=== PATIENT | male | born 1940 | race Hispanic/Latino ===

== ENCOUNTER 2018-09-16 06:13 | Day surgery (SDC) | payer MEDICARE ==
[2018-09-13 14:45] VITALS: BP 139/65
[2018-09-13 15:02] LABS: BASOPHILS % (AUTO) 0.7 % (0.0-5.0); EOSINOPHILS % (AUTO) 7.3 % (0.0-8.0); HEMATOCRIT 39.4 % (36-48); LYMPHOCYTES % (AUTO) 19.4 % (21.0-51.0); MEAN CORPUSCULAR HEMOGLOBIN 29.5 pg (27.0-33.0); MEAN CORPUSCULAR HGB CONC 33.3 g/dL (32.0-36.0); MEAN CORPUSCULAR VOLUME 88.6 fL (79-99); NEUTROPHILS % (AUTO) 60.6 % (40.0-77.0); PLATELET COUNT (AUTO) 199 K/uL (130-400); RED BLOOD CELL COUNT(AUTO) 4.45 MIL/uL (4.00-5.50); WHITE BLOOD COUNT (AUTO) 5.9 K/uL (4.8-10.8)
[2018-09-13 15:08] LABS: CREATININE 1.1 mg/dL (0.5-1.5); POTASSIUM 3.9 mmol/L (3.5-5.1)
[2018-09-13 15:11] LABS: INR 0.97 (0.85-1.15); PROTHROMBIN TIME 10.2 SEC (9.6-11.6)
[2018-09-13 16:08] LABS: APPEARANCE,URINE CLEAR (CLEAR); BILIRUBIN,URINE NEGATIVE (NEGATIVE); COLOR,URINE YELLOW (YELLOW); GLUCOSE, URINE (UA) NEGATIVE (NEGATIVE); KETONES,URINE NEGATIVE (NEGATIVE); LEUKOCYTE ESTERASE ,URINE TRACE (NEGATIVE); NITRATE,URINE NEGATIVE (NEGATIVE); OCCULT BLOOD,URINE MODERATE (NEGATIVE); PROTEIN,URINE 30 mg/dL (NEGATIVE); UROBILINOGEN,URINE 0.2 mg/dL (0.2-1.0)
[2018-09-13 16:23] LABS: BACTERIA,URINE Few /HPF (None Seen); MUCUS,URINE Few LPF (None Seen); SQUAMOUS EPITHELIAL CELL,UR Rare /HPF (0-2)
[~2018-09-16] VITALS: Ht 167.6 cm; Wt 63.8 kg
[2018-09-16] VITALS (15 sets, daily range): BP systolic 126–155; BP diastolic 66–93
[~2018-09-16 06:13] MED LIST: GENTAMICIN SULFATE 300 MG in SODIUM CHLORIDE 0.9% 100 ML IV PRN
[2018-09-16] MEDS ORDERED: LACTATED RINGERS 1000ML 1,000 ML IV ONE (07:02)
[2018-09-16] MEDS: CEFTRIAXONE SODIUM 1 GM IVP ONE ×2 (07:20→08:55)
[2018-09-16] MEDS ORDERED: TAMS-1 PO (07:27)
[2018-09-16] MEDS ORDERED: ROSU10TA27 PO (07:27)
[2018-09-16] MEDS ORDERED: LEVO500T89 PO (07:27)
[2018-09-16] MEDS ORDERED: GENTAMICIN SULFATE 300 MG in SODIUM CHLORIDE 0.9% 100 ML IV SCH (07:45)
[2018-09-16] MEDS ORDERED: FENTANYL CITRATE PF 50 MCG/1 ML 2ML VIAL ONE ×2 (08:00→10:00)
[2018-09-16] MEDS ORDERED: PROPOFOL 10 MG/ML 20ML VIAL IV ONE (08:00)
[2018-09-16] MEDS ORDERED: LIDOCAINE PF 2% 5ML ABBOJECT ONE (08:00)
[2018-09-16] MEDS ORDERED: PHENYLEPHRINE HCL 10 MG/ML 1ML VIAL IV ONE (09:12)
[2018-09-16] MEDS ORDERED: SODIUM CHLORIDE 0.9% 10 ML VIAL ONE (09:12)
[2018-09-16] MEDS ORDERED: GLYCOPYRROLATE 1 MG/5 ML SYRINGE ONE (09:24)
[2018-09-16] MEDS ORDERED: MEPERIDINE-PF 25 MG/ML SYG ONE (10:42)
--- NOTE | 2018-09-16 12:15 | NUR ---
D/C PT. CAME ALONE AND MISS UNDERSTOOD THAT HE WAS GOING HOME AFTER PROCEDURE. PT. FAMILY WAS CALLED TO PICK HIM UP. FAMILY COMING DARIEN AND WOULD BE ABOUT AN HOUR OR TWO BECAUSE OF FLOODING ISSUE.
--- NOTE | 2018-09-16 13:55 | NUR ---
D/C PT. DISCHARGE WITH DAUGHTER IN LAW. RX SCRIPT GIVEN TO PATIENT WITH D/C INSTRUCTION AND DR. ROSALES F/U. PT. LEFT VIA WHEEL CHAIR IN PVT.
== END 2018-09-16 13:55 | disposition home or self-care (01) ==
LOC: DAH 06:13
PROVIDERS: ATTEND Urology
DX: C61 Malignant neoplasm of prostate (principal); N40.1 Benign prostatic hyperplasia with lower urinary tract symptoms; R33.8 Other retention of urine; I10 Essential (primary) hypertension; E78.5 Hyperlipidemia, unspecified; Z98.890 Other specified postprocedural states; Z98.49 Cataract extraction status, unspecified eye; Z79.2 Long term (current) use of antibiotics; Z79.899 Other long term (current) drug therapy
CPT/HCPCS: 36415; 52648; 55700; 71045; 76942; 80048; 81001; 85025; 85610; 87077; 87088; 87186; 93005; A4354; A4358; A4600; A4649; A4930; C1758; J0696; J1580 ×2; J2001; J2175; J2370; J2704; J3010 ×2; J3490; J7030; J7120